=== PATIENT | female | born 1930 | race Caucasian/White ===

== ENCOUNTER 2018-05-02 11:51 | Emergency (ER) | payer MEDICARE, BC ==
[~2018-05-02] VITALS: Ht 160 cm; Wt 86.0 kg
[~2018-05-02 11:51] MED LIST: BUME1TAB4 PO; CHOL10002 PO; CLON0.1T PO; DILT180C66 PO; DOXA2TAB2 PO; LEVO100T PO; LOSA25TA96 PO; MAGN250T29 PO; OXYB5TAB11 PO; POTA10CA44 PO; WARF1TAB PO
[2018-05-02] MEDS ORDERED: cloNIDine 0.1 mg tablet PO STA (12:16)
[2018-05-02] MEDS ORDERED: AMLO2.5T PO (12:21)
[2018-05-02] MEDS ORDERED: amLODIPine 5mg tablet PO ONE (13:10)
[2018-05-02 14:44] VITALS: BP 182/100
== END 2018-05-02 14:49 | disposition home or self-care (01) ==
LOC: ER 11:51
DX: I16.0 Hypertensive urgency (principal); I10 Essential (primary) hypertension; I48.91 Unspecified atrial fibrillation; Z79.01 Long term (current) use of anticoagulants; Z79.899 Other long term (current) drug therapy
CPT/HCPCS: 99283

== ENCOUNTER 2020-01-04 08:37 | Outpatient (CLI) | payer MEDICARE, BC ==
[~2020-01-04] VITALS: Ht 160 cm; Wt 90.7 kg
[~2020-01-04 08:37] MED LIST changes: +AMLO2.5T4 PO; +BUME1TAB34 PO; -BUME1TAB4 PO; -OXYB5TAB11 PO; +OXYB5TAB16 PO
[2020-01-04 09:05] LABS: TOTAL HEMOGLOBIN 16.6 G/dl (12.0-16.0)
[2020-01-04] MEDS ORDERED: albuterol 2.5 MG/3 ML nebule NEB ONE (09:35)
== END 2020-01-04 23:59 | disposition home or self-care (01) ==
LOC: RT 08:37
PROVIDERS: ATTEND Internal Medicine
DX: R06.02 Shortness of breath (principal)
CPT/HCPCS: 85018; 94060; 94727; 94729; 94760